=== PATIENT | female | born 1955 ===

== ENCOUNTER 2020-07-29 15:13 | Outpatient (CLI) | payer OTHER | END 2020-07-29 15:25 | disposition home or self-care (01) | LOC: RAD 15:13 | PROVIDERS: ATTEND Surgery | DX: R07.89 Other chest pain (principal) ==

== ENCOUNTER 2021-04-08 09:00 | Outpatient (CLI) | payer OTHER | END 2021-04-08 09:15 | disposition home or self-care (01) | LOC: PPH VACUNA 09:00 | PROVIDERS: ATTEND Emergency Medicine Pediatric Emergency Medicine | DX: Z23 Encounter for immunization (principal) ==

== ENCOUNTER 2022-11-28 08:05 | Outpatient (CLI) | payer OTHER | END 2022-11-28 08:09 | disposition home or self-care (01) | LOC: TOM 08:05 | PROVIDERS: ATTEND Surgery | DX: K52.9 Noninfective gastroenteritis and colitis, unspecified (principal); R10.9 Unspecified abdominal pain | CPT/HCPCS: 74177; Q9965 ==